=== PATIENT | male | born 2000 | race Two or more races ===

== ENCOUNTER 2021-11-23 20:31 | Emergency (ER) | payer MEDICAID ==
[~2021-11-23] VITALS: Ht 182.9 cm; Wt 77.1 kg
[2021-11-23 22:33] VITALS: BP 135/74
[2021-11-23] MEDS ORDERED: IBUP800T27 PO (22:36)
== END 2021-11-23 22:44 | disposition home or self-care (01) ==
LOC: ER 20:34
DX: S62.316A Displaced fracture of base of fifth metacarpal bone, right hand, initial encounter for closed fracture (principal); W22.8XXA Striking against or struck by other objects, initial encounter; Y93.89 Activity, other specified; Y92.89 Other specified places as the place of occurrence of the external cause; Y99.8 Other external cause status
CPT/HCPCS: 29125; 73130